=== PATIENT | female | born 1985 | race Caucasian/White ===

== ENCOUNTER 2017-03-17 12:28 | Emergency (ER) | payer OTHER ==
[2017-03-17 12:50] VITALS: BMI 33.6
--- NOTE | 2017-03-17 13:07 | PDOC ---
History of Present Illness - History of Present Illness Initial Comments: 03/17/17 15:06 The patient is a 31 year old female, with a significant past medical history of ovarian cysts, who presents to the emergency department with, left flank pain radiating to left groin for about 3 days. She states she could barely sleep last night secondary to pain. She reports her pain as an intermittent, sharp and throbbing, and rates her pain as 8/10 in severity now. 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 She states she also experienced the pain when walking with her daughter in the park yesterday. She denies any exacerbating or alleviating factors. She denies chest pain, shortness of breath, headache and dizziness. She denies fever, chills, nausea, vomit, diarrhea and constipation. She denies dysuria, frequency, urgency and hematuria. Allergies: NKDA PCP - Dr. Long <Adilene Mandujano - Last Filed: 03/17/17 18:39> - General History Source: Patient Exam Limitations: No Limitations - History of Present Illness Initial Comments: 03/17/17 13:31 Pt not seen because her daughter is currently a patient in the [facility] area and she has not been brought in to the ER <Teri Lock - Last Filed: 03/17/17 18:54> - General Chief Complaint: Pain Stated Complaint: ABD PAIN Time Seen by Provider: 03/17/17 13:07 Past History <Adilene Mandujano - Last Filed: 03/17/17 18:39> - Past Medical History Asthma: Yes - Surgical History Abdominal Surgery: Yes () - Psycho/Social/Smoking Cessation Hx Anxiety: Yes Suicidal Ideation: No Smoking Status: No Smoking History: Never smoked Have you smoked in the past 12 months: No Number of Cigarettes Smoked Daily: 0 Information on smoking cessation initiated: No Hx Alcohol Use: No Drug/Substance Use Hx: No Substance Use Type: None <Teri Lock - Last Filed: 03/17/17 18:54> - Past Medical History Allergies/Adverse Reactions: Allergies Allergy/AdvReac Type Severity Reaction Status Date / Time No Known Allergies Allergy Verified 03/17/17 14:42 Home Medications: Ambulatory Orders Dicyclomine HCl [Bentyl] 10 mg PO BID PRN #10 capsule 03/17/17 Review of Systems - Review of Systems Able to Perform ROS?: Yes Comments:: 03/17/17 15:06 CONSTITUTIONAL: Absent: fever, no chills, no fatigue EYES: Absent: visual changes ENT: Absent: ear pain, no sore throat CARDIOVASCULAR: Absent: chest pain, no palpitations RESPIRATORY: Absent: cough, no SOB GASTROINTESTINAL: (+) intermittent left flank pain radiating to groin. Absent: abdominal pain, no nausea, no vomiting, no constipation, no diarrhea GENITOURINARY: Absent: dysuria, no frequency, no hematuria MUSCULOSKELETAL: Absent: back pain, no arthralgia, no myalgia SKIN: Absent: rash NEURO: Absent: headache <Adilene Mandujano - Last Filed: 03/17/17 18:39> *Physical Exam - Vital Signs Last Vital Signs Temp Pulse Resp BP Pulse Ox 98.7 F 80 18 149/92 100 03/17/17 12:49 03/17/17 12:49 03/17/17 12:49 03/17/17 12:49 03/17/17 12:49 - Physical Exam Comments: 03/17/17 15:07 GENERAL: The patient is in no acute distress. HEAD: Normal with no signs of trauma. EYES: PERRLA, EOMI, sclera anicteric, conjunctiva clear. ENT: Ears normal, nares patent, oropharynx clear without exudates. Moist mucous membranes. NECK: Normal range of motion, supple without lymphadenopathy, JVD, or masses. LUNGS: Breath sounds equal, clear to auscultation bilaterally. No wheezes, and no crackles. HEART:Regular rate and rhythm, normal S1 and S2 without murmur, rub or gallop. ABDOMEN: Soft, nontender, normoactive bowel sounds. No guarding, no rebound. No masses palpable. EXTREMITIES: Normal range of motion, no edema. No clubbing or cyanosis. No erythema, or tenderness. NEUROLOGICAL: Cranial nerves II through XII grossly intact. Normal speech. No focal neurological deficits. MUSCULOSKELETAL: (+) mild tenderness to palpation at the left paraspinal muscle , no CVA tenderness SKIN: Warm, Dry, normal turgor, no rashes or lesions noted. <Adilene Mandujano - Last Filed: 03/17/17 18:39> - Vital Signs Last Vital Signs Temp Pulse Resp BP Pulse Ox 98.7 F 80 18 149/92 100 03/17/17 12:49 03/17/17 12:49 03/17/17 12:49 03/17/17 12:49 03/17/17 12:49 <Teri Lock - Last Filed: 03/17/17 18:54> ED Treatment Course - LABORATORY CBC & Chemistry Diagram: 03/17/17 14:30 03/17/17 14:30 - ADDITIONAL ORDERS Additional order review: 03/17/17 14:30 RBC 4.66 MCV 87.4 MCHC 33.7 RDW 13.5 MPV 6.8 L Neutrophils % 65.2 Lymphocytes % 24.4 D Monocytes % 8.4 Eosinophils % 0.8 Basophils % 1.2 - RADIOLOGY Radiograph Interpretation: 03/17/17 18:39 EXAM#: TYPE/EXAM: RESULT: [id number] US/KIDNEY / RENAL US [id number] US/PELVIC / BLADDER US Renal ultrasound and Pelvic ultrasound Reported By: Alfredo Patel MD 03/17/17 4231 Clinical information: evaluate for renal stone, left ovarian torsion/cyst. There is no hydronephrosis. The kidneys appear unremarkable in position, cortical thickness, echogenicity and size. The left kidney measures 11.3 cm in length, the right knee 10.4 cm. No discrete renal mass lesion or calculus is identified within the limitations of sonography. There is no definite perirenal fluid collection. The ovaries demonstrate no discrete abnormality. There is no Doppler evidence of ovarian torsion, sensitivity sent percent. A small amount of free fluid is noted within the cul-de-sac. The uterus appears unremarkable in size, and echogenicity. No focal uterine pathology is noted. The endometrium is mildly thickened measuring 1.3 cm which may be on a physiologic basis. Correlate menstrual cycle phase. The partially visualized urinary bladder demonstrates no obvious abnormality. Impression: The kidneys appear unremarkable demonstrating no sonographic abnormality. The ovaries appear unremarkable. A small amount of pelvic free fluid is noted. Mildly thickened endometrium. <Adilene Mandujano - Last Filed: 03/17/17 18:39> - LABORATORY CBC & Chemistry Diagram: 03/17/17 14:30 03/17/17 14:30 <Teri Lock - Last Filed: 03/17/17 18:54> Medical Decision Making - Medical Decision Making 03/17/17 13:07 A portion of this note was documented by scribe services under my direction. I have reviewed the details of the note, within reason, and agree with the documentation with the following case summary and management plan written by me. Nursing documentation reviewed and incorporated into medical decision making This patient is a 31-year-old female no significant past medical history who presents emergency department with a complaint of abdominal pain Symptoms are intermittent Located in the left lower abdomen No trauma No vaginal bleeding or discharge No fevers or chills No vomiting Pt states her pain is 8/10 and constant currently (although, her symptoms have been intermittent) 03/17/17 17:14 Laboratory Tests 03/17/17 03/17/17 03/17/17 14:20 14:30 14:30 WBC 8.5 Hgb 13.7 Hct 40.7 Plt Count 311 Sodium Potassium Chloride Carbon Dioxide BUN Creatinine Random Glucose Serum , Qual Negative Urine Blood Negative Urine Nitrite Negative Urine RBC 1 Urine WBC 3 Ur Epithelial Cells Moderate 03/17/17 14:30 WBC Hgb Hct Plt Count Sodium 138 Potassium 4.1 Chloride 102 Carbon Dioxide 30 D BUN 9 Creatinine 0.8 Random Glucose 86 Serum , Qual Urine Blood Urine Nitrite Urine RBC Urine WBC Ur Epithelial Cells 03/17/17 18:48 Ultrasound of the kidneys and pelvis No torsion No renal hydro 03/17/17 18:49 Will discharge to home Follow up with PMD 03/17/17 18:51 Urine not convincing Will hold on abx until culture <Teri Lock - Last Filed: 03/17/17 18:54> *DC/Admit/Observation/Transfer - Attestations Scribe Attestion: 03/17/17 15:08 Documentation prepared by Adilene Mandujano, acting as center medical specialist for Teri Lock MD <Adilene Mandujano - Last Filed: 03/17/17 18:39> - Discharge Dispostion Admit: No <Teri Lock - Last Filed: 03/17/17 18:54> Diagnosis at time of Disposition: Abdominal pain Qualifiers: Abdominal location: unspecified location Qualified Code(s): R10.9 - Unspecified abdominal pain - Discharge Dispostion Disposition: HOME Condition at time of disposition: Stable - Prescriptions Prescriptions: Dicyclomine HCl [Bentyl] 10 mg PO BID PRN #10 capsule PRN Reason: abdominal pain - Referrals Referrals: Gianni Long MD [Primary Care Provider] - - Patient Instructions Printed Discharge Instructions: DI for Abdominal Pain-Adult Additional Instructions: Return to the emergency department immediately with ANY new, persistent or worsening symptoms. Continue any medications as previously prescribed by your physician. You should follow up with your primary doctor as soon as possible regarding today's emergency department visit. . Please make sure your doctor reviews the results of your emergency evaluation. Thank you for coming to the Emergency Department today for your care. It was a pleasure to see you today. Please note that your evaluation is INCOMPLETE until you follow-up with your doctor. - Post Discharge Activity Work/School Note: Back to Work
[2017-03-17 14:54] LABS: BASOPHIL 1.2 % (0-2.0); EOSINOPHIL 0.8 % (0-4.5); MCH 29.5 pg (25.7-33.7); MCHC 33.7 g/dl (32.0-36.0); MEAN CELL VOLUME 87.4 fl (80-96); MEAN PLT VOLUME 6.8 fl (7.5-11.1); NEUTROPHILS 65.2 % (42.8-82.8); PLATELET COUNT 311 K/MM3 (134-434); RDW 13.5 % (11.6-15.6); WHITE BLOOD COUNT 8.5 K/mm3 (4.0-10.0)
[2017-03-17 15:01] LABS: URINE APPEARANCE SLCLOUDY; URINE BILIRUBIN NEGATIVE (NEGATIVE); URINE BLOOD NEGATIVE (NEGATIVE); URINE COLOR YELLOW; URINE GLUCOSE (UA) NEGATIVE (NEGATIVE); URINE KETONE NEGATIVE (NEGATIVE); URINE LEUK ESTERASE TRACE (NEGATIVE); URINE NITRITE NEGATIVE (NEGATIVE); URINE PROTEIN NEGATIVE (NEGATIVE); URINE UROBILINOGEN NEGATIVE mg/dL (0.2-1.0)
[2017-03-17 15:11] LABS: ALBUMIN 3.5 g/dl (3.4-5.0); AMYLASE 58 U/L (25-115); ANION GAP 6 (8-16); BILIRUBIN,TOTAL 0.5 mg/dL (0.2-1.0); CALCIUM 8.5 mg/dL (8.5-10.1); CO2 30 mmol/L (21-32); CREATININE 0.8 mg/dL (0.55-1.02); GLUCOSE,RANDOM 86 mg/dL (74-106); SGOT/AST 10 U/L (15-37); SGPT/ALT 22 U/L (12-78); TOT PROT 6.8 g/dl (6.4-8.2)
[2017-03-17 15:12] LABS: ALK PHOS 84 U/L (45-117)
[2017-03-17 15:52] LABS: URINE MUCUS RARE; URINE RBC 1 /hpf (0-3); URINE WBC 3 /hpf (3-5)
[2017-03-17] MEDS ORDERED: KETOROLAC TROMETHAMINE 30 MG/1 ML VIAL IVPUSH ONE (15:52)
[2017-03-17] MEDS ORDERED: KETOROLAC TROMETHAMINE 30 MG/1 ML VIAL ONE (16:04)
[2017-03-17 18:59] VITALS: BP 129/89; PULSE 65; TEMP 98.1
== END 2017-03-17 19:10 | disposition home or self-care (01) ==
LOC: JER 12:28
PROC: 3E0333Z Introduction of Anti-inflammatory into Peripheral Vein, Percutaneous Approach (ICD-10-PCS; principal; 2017-03-17)
DX: R10.9 Unspecified abdominal pain (principal)
CPT/HCPCS: 36415; 76775-TC; 76856-TC; 80053; 81003; 81015; 82150; 83690; 84703; 85025; 87086; 96374; 99283-25

== ENCOUNTER 2017-05-07 13:52 | Emergency (ER) | payer OTHER ==
[2017-05-07 13:58] VITALS: BP 143/108; PULSE 85; TEMP 97.9; BMI 38.7
--- NOTE | 2017-05-07 16:32 | PDOC ---
History of Present Illness - General Chief Complaint: Edema Stated Complaint: RT LEG PAIN Time Seen by Provider: 05/07/17 14:53 - History of Present Illness Initial Comments: 05/07/17 15:51 CHIEF COMPLAINT: R leg pain HISTORY OF PRESENT ILLNESS: 31 yo F with hx of neuropathy presents to [facility] with pain to R knee and leg. Patient reports she is on gabapentin for nerve pain to R foot but states that today "my foot feels numb and I have shooting pain behind my R knee." Patient denies any shortness of breath, palpitations, or chest pain. PAST MEDICAL HISTORY: Denies past medical history FAMILY HISTORY: Denies SOCIAL HISTORY: Denies tobacco, alcohol, illicit drug use. SURGICAL HISTORY: Denies ALLERGIES: No known drug allergies REVIEW OF SYSTEMS General/Constitutional: Denies fever or chills. Denies weakness, weight change. HEENT: Denies change in vision. Denies ear pain or discharge. Denies sore throat. Cardiovascular: Denies chest pain or shortness of breath. Respiratory: Denies cough, wheezing, or hemoptysis. Gastrointestinal: Denies nausea, vomiting, diarrhea or constipation. Denies rectal bleeding. Genitourinary: Denies dysuria, frequency, or change in urination. Musculoskeletal: Pain to R leg. PHYSICAL EXAM General Appearance: Well-appearing, appropriately dressed. No apparent distress. HEENT: EOMI, PERRLA. No conjunctival pallor. No photophobia, scleral icterus. Respiratory/Chest: Lungs CTAB. Cardiovascular: RRR. S1, S2. Vascular Pulses: Dorsalis-Pedis (R): 2+, Dorsalis-Pedis (L): 2+ Gastrointestinal/Abdominal: Normal bowel sounds. Abdomen soft, non-distended. No tenderness or rebound tenderness. No organomegaly, pulsatile mass, guarding , hernia, hepatomegaly, splenomegaly. Lymphatic: No adenopathy, tenderness. Musculoskeletal/Extremities: Minimal swelling to anterior R knee, no erythema, pitting edema or warmth. No deformity. FROM of all extremities, normal capillary refill. No tenderness to extremities, pedal edema, erythema or deformity. Integumentary: Appropriate color, dry, warm. 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 Fully oriented, alert. Appropriate mood/affect. Motor strength 5/5. No appreciable EOM palsy, facial droop or sensory deficit. 05/07/17 16:34 Past History - Past Medical History Allergies/Adverse Reactions: Allergies Allergy/AdvReac Type Severity Reaction Status Date / Time No Known Allergies Allergy Verified 05/07/17 13:58 Home Medications: Ambulatory Orders Gabapentin [Gralise] 1 each PO ASDIR 05/07/17 Ibuprofen 600 mg PO TID PRN #21 tablet 05/07/17 Asthma: Yes - Surgical History Abdominal Surgery: Yes () - Suicide/Smoking/Psychosocial Hx Smoking Status: No Smoking History: Never smoked Have you smoked in the past 12 months: No Number of Cigarettes Smoked Daily: 0 Hx Alcohol Use: No Drug/Substance Use Hx: No Substance Use Type: None *Physical Exam - Vital Signs Last Vital Signs Temp Pulse Resp BP Pulse Ox 97.9 F 85 19 143/108 99 05/07/17 13:55 05/07/17 13:55 05/07/17 13:55 05/07/17 13:55 05/07/17 13:55 ED Treatment Course - RADIOLOGY Radiology Studies Ordered: Category Date Time Status DUPLEX VASCUL US-1 LEG [US] Stat Ultrasound 05/07/17 15:45 Ordered Medical Decision Making - Medical Decision Making 05/07/17 16:39 31 yo F with hx of neuropathy presents to [facility] with "shooting" pain to R knee and leg. -duplex us r/o dvt US negative for DVT. Advised patient to f/u with neurologist for fruther evaluation and of signs and symptoms for return to ER. *DC/Admit/Observation/Transfer Diagnosis at time of Disposition: Knee pain, right Qualifiers: Chronicity: acute Qualified Code(s): M25.561 - Pain in right knee; M25.561 - Pain in right knee - Discharge Dispostion Disposition: HOME Condition at time of disposition: Stable Admit: No - Prescriptions Prescriptions: Ibuprofen 600 mg PO TID PRN #21 tablet PRN Reason: Pain - Referrals Referrals: James Desir MD [Primary Care Provider] - - Patient Instructions Printed Discharge Instructions: Neuropathic Pain, DI for Patellofemoral Pain Syndrome-Adult, DI for Knee Pain Additional Instructions: Please take ibuprofen as prescribed to reduce swelling and inflammation in your knee. Please follow up with your neurologist for continued evaluation of your nerve pain. If your pain continues, you may also want to follow up with an orthopedist for further evaluation and possible MRI and/or physical therapy. If you develop any fever, chills, vomiting, diarrhea; or you develop increased pain, swelling, redness, or warmth to the knee, please return to the ER immediately.
== END 2017-05-07 16:50 | disposition home or self-care (01) ==
LOC: JERFT 13:52
DX: M25.561 Pain in right knee (principal)
CPT/HCPCS: 93971-TC; 99281-25

== ENCOUNTER 2017-08-13 15:43 | Emergency (ER) | payer OTHER ==
[2017-08-13 15:54] VITALS: BP 146/89; PULSE 80; TEMP 97.8; BMI 37.5
--- NOTE | 2017-08-13 15:55 | PDOC ---
Rapid Medical Evaluation Time Seen by Provider: 08/13/17 15:50 Medical Evaluation: Allergies Allergy/AdvReac Type Severity Reaction Status Date / Time No Known Allergies Allergy Verified 05/07/17 13:58 08/13/17 15:50 The patient presents with a chief complaint of: three weeks of "weird feeling in her face" admits to feeling pins and needles to her head, dizziness, hot flashes. Pain worse with valsalva manuvers. Denies cold like symptoms. Has not seen her PCP. Denies recent travel. on Gabapentin for sciatica. I have performed a brief in-person evaluation of this patient; Pertinent physical exam findings: TTP of scalp. Numbness to face b/l. afebrile, EOMI, PERRLA I have ordered the following: CBC, CMP, UA, UC, Head CT The patient will proceed to the ED for further evaluation.
--- NOTE | 2017-08-13 17:10 | PDOC ---
History of Present Illness - General Chief Complaint: Headache Stated Complaint: DIZZINESS Time Seen by Provider: 08/13/17 15:50 History Source: Patient Exam Limitations: No Limitations - History of Present Illness Initial Comments: 31 y/o afebrile female with PMH vertigo, lumbar nerve impingement (on gabapentin ) c/o 3 weeks of tingling to head and face with movement of neck and with bowel movements. The patient states she has also had some nausea and dizziness. She denies trauma to head, changes to vision/hearing, ear pain, eye pain, f/c, neck pain, v /d, CP, SOB, cough, hemoptysis, numbness/tingling in extremities. The patient hasn't taken any OTC medications for her symptoms, nor has she seen her PCP. = Past History - Past Medical History Allergies/Adverse Reactions: Allergies Allergy/AdvReac Type Severity Reaction Status Date / Time No Known Allergies Allergy Verified 08/13/17 15:54 Home Medications: Ambulatory Orders Gabapentin 100 mg PO ASDIR 08/13/17 Asthma: Yes COPD: No - Surgical History Abdominal Surgery: Yes () - Suicide/Smoking/Psychosocial Hx Smoking Status: No Smoking History: Never smoked Have you smoked in the past 12 months: No Number of Cigarettes Smoked Daily: 0 Information on smoking cessation initiated: No Hx Alcohol Use: No Drug/Substance Use Hx: No Substance Use Type: None Review of Systems - Review of Systems Able to Perform ROS?: Yes Is the patient limited Citizen Of [place] proficient: No Constitutional: No: Symptoms Reported HEENTM: No: Symptoms Reported Respiratory: No: Symptoms reported Cardiac (ROS): No: Symptoms Reported ABD/GI: Yes: Vomiting. No: Abdominal Distended, Abd. Pain w/ defecation, Constipated, Diarrhea, Nausea : No: Symptoms Reported Musculoskeletal: No: Symptoms Reported Neurological: Yes: Tingling, Dizziness (Tingling to face and head) Psychiatric: Yes: Anxiety *Physical Exam - Vital Signs Last Vital Signs Temp Pulse Resp BP Pulse Ox 97.8 F 80 18 146/89 100 08/13/17 15:51 08/13/17 15:51 08/13/17 15:51 08/13/17 15:51 08/13/17 15:51 - Physical Exam Comments: The patient is a morbidly obese, well appearing, ambulatory female. General Appearance: Yes: Nourished, Appropriately Dressed. No: Apparent Distress HEENT: positive: EOMI, NAZ, Normal ENT Inspection, TMs Normal. negative: Scleral Icterus (R), Scleral Icterus (L), Pharyngeal Erythema, Tonsillar Exudate , Tonsillar Erythema, Nasal Congestion, Rhinorrhea, Sinus Tenderness, TM Bulging , TM Dull, TM Erythema Neck: negative: Tender Respiratory/Chest: positive: Lungs Clear Cardiovascular: positive: Regular Rhythm, Regular Rate Gastrointestinal/Abdominal: positive: Soft. 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 Sensation in tact in face and head). negative: Facial Droop, Numbness ED Treatment Course - LABORATORY CBC & Chemistry Diagram: 08/13/17 16:10 08/13/17 16:10 Medical Decision Making - Medical Decision Making A/P: 31 y/o afebrile female c/o head and face tingling with head movements and bowel movements x 3 weeks. Plan is as follows: 1. Labs 2. hcg 3. Head CT CT head IMPRESSION: No intracranial hemorrhage, mass effect, midline shift or hydrocephalus. Labs unremarkable. Explained the results to the patient. Suggested she f/u with Neuro if symptoms continue. Instructed her to return to the ER with any worsening or concerning symptoms. The patient verbalizes understanding of all instructions, has no further questions and is awaiting discharge. *DC/Admit/Observation/Transfer Diagnosis at time of Disposition: Tingling of face - Discharge Dispostion Disposition: HOME Condition at time of disposition: Good - Referrals Referrals: Ruthie Milner MD [Primary Care Provider] - Torres Singh MD [Staff Physician] - - Patient Instructions Printed Discharge Instructions: DI for Numbness/tingling Additional Instructions: Discharge Instructions: -All of your labs and scans were normal -Please follow up with your neurologist within 1 week -Return to the ER with any worsening or concerning symptoms - Post Discharge Activity
[2017-08-13 17:34] LABS: BASO % 0.4 % (0-2.0); EOS % 1.1 % (0-4.5); HEMATOCRIT 39.9 % (32.4-45.2); HEMOGLOBIN 13.5 GM/dL (10.7-15.3); LYMPH % 23.8 % (8-40); MCH 29.2 pg (25.7-33.7); MCHC 33.7 g/dl (32.0-36.0); MEAN CELL VOLUME 86.5 fl (80-96); MEAN PLT VOLUME 7.4 fl (7.5-11.1); MONO % 7.9 % (3.8-10.2); NEUT % 66.8 % (42.8-82.8); PLATELET COUNT 357 K/MM3 (134-434); RBC 4.61 M/mm3 (3.60-5.2); RDW 13.9 % (11.6-15.6); WHITE BLOOD COUNT 7.9 K/mm3 (4.0-10.0)
[2017-08-13 18:45] LABS: ALBUMIN 3.5 g/dl (3.4-5.0); ANION GAP 5 (8-16); BLOOD UREA NITROGEN 15 mg/dL (7-18); CALCIUM 8.1 mg/dL (8.5-10.1); CHLORIDE 106 mmol/L (98-107); CO2 28 mmol/L (21-32); GLUCOSE,RANDOM 95 mg/dL (74-106); SODIUM 139 mmol/L (136-145)
[2017-08-13 18:48] LABS: ALK PHOS 84 U/L (45-117); BILIRUBIN,TOTAL 0.3 mg/dL (0.2-1.0); CREATININE 0.8 mg/dL (0.55-1.02); SGOT/AST 9 U/L (15-37); SGPT/ALT 22 U/L (12-78); TOT PROT 6.9 g/dl (6.4-8.2)
[2017-08-13] MEDS ORDERED: IBUPROFEN 600 MG TABLET (FP) PO ONE ×2 (19:12→19:23)
== END 2017-08-13 19:42 | disposition home or self-care (01) ==
LOC: JERFT 15:43
DX: R20.2 Paresthesia of skin (principal)
CPT/HCPCS: 36415; 70450-TC; 80053; 84703; 85025; 99281-25

== ENCOUNTER 2018-04-27 09:52 | Emergency (ER) | payer OTHER ==
[2018-04-27 10:03] VITALS: BP 150/97; PULSE 72; TEMP 99.3; BMI 36.0
[2018-04-27] MEDS ORDERED: IBUPROFEN 600 MG TABLET (FP) PO ONE (10:22)
--- NOTE | 2018-04-27 10:24 | PDOC ---
History of Present Illness - General Chief Complaint: Pain Stated Complaint: FELL/LT SIDE PAIN SWOLLEN Time Seen by Provider: 04/27/18 10:06 History Source: Patient Exam Limitations: No Limitations - History of Present Illness Initial Comments: 04/27/18 10:36 Patient was walking daughter to school, slipped and fell landing on her left side striking her shoulder, elbow, left hip knee and ankle. Denies head injury, no pain to neck or back. States is concerned about her left knee as is difficult to walk and is very painful. Occurred: reports: just prior to arrival, this morning Severity: reports: moderate Pain Location: reports: lower extremity (left knee , ankle and hip). denies: neck Method of Injury: Yes: fall Modifying Factors: improves with: cold therapy Associated Symptoms (Fall): denies symptoms Past History - Travel Traveled outside of the country in the last 30 days: No Close contact w/someone who was outside of country & ill: No - Past Medical History Allergies/Adverse Reactions: Allergies Allergy/AdvReac Type Severity Reaction Status Date / Time No Known Allergies Allergy Verified 04/27/18 09:59 Home Medications: Ambulatory Orders Lisinopril 10 mg PO ASDIR 03/03/18 Asthma: Yes COPD: No HTN: Yes - Surgical History Abdominal Surgery: Yes () - Suicide/Smoking/Psychosocial Hx Smoking Status: No Smoking History: Never smoked Have you smoked in the past 12 months: No Number of Cigarettes Smoked Daily: 0 Hx Alcohol Use: No Drug/Substance Use Hx: No Substance Use Type: None Review of Systems - Review of Systems Able to Perform ROS?: Yes Is the patient limited [place] proficient: Yes Constitutional: Yes: Symptoms Reported, See HPI. No: Malaise HEENTM: Yes: See HPI. No: Symptoms Reported Respiratory: Yes: See HPI. No: Symptoms reported, Cough Musculoskeletal: Yes: Symptoms Reported, See HPI, Joint Pain, Joint Swelling ( left knee, , left ankle, and left hip left ankle, and left hip with bruising initiated along lateral aspect of upper tibia) Integumentary: Yes: Symptoms Reported, See HPI, Bruising Neurological: Yes: See HPI. No: Symptoms reported, Headache All Other Systems: Reviewed and Negative *Physical Exam - Vital Signs Last Vital Signs Temp Pulse Resp BP Pulse Ox 99.3 F 72 16 150/97 100 04/27/18 10:00 04/27/18 10:00 04/27/18 10:00 04/27/18 10:00 04/27/18 10:00 - Physical Exam General Appearance: Yes: Nourished, Appropriately Dressed, Apparent Distress, Mild Distress HEENT: positive: EOMI, NAZ, Normal ENT Inspection, TMs Normal, Pharynx Normal Neck: positive: Supple. negative: Tender Respiratory/Chest: positive: Lungs Clear Musculoskeletal: negative: Normal Inspection Extremity: positive: Normal Capillary Refill, Swelling. negative: Normal Inspection, Normal Range of Motion (limited range of motion to left knee secondary to swelling and tenderness to lateral aspect of upper left extremity at knee joint. 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 We'll treat conservatively *DC/Admit/Observation/Transfer Diagnosis at time of Disposition: Multiple contusions - Discharge Dispostion Disposition: HOME Condition at time of disposition: Stable Decision to Admit order: No - Referrals Referrals: Jessica Oconnor MD [Primary Care Provider] - - Patient Instructions Printed Discharge Instructions: DI for Contusion Additional Instructions: Rest, ice to area on and off for 15 minutes 4-6 times a day Avoid heavy lifting or exercise until pain and swelling is resolved or until further directed Keep area highly elevated to reduce swelling Use splints/Cesar wrap as directed Followup with orthopedist in one to 2 days if not improving, if significantly improved may wait one week for followup with orthopedist May use ibuprofen 2-200 mg tablets every 6 hours as needed for pain - Post Discharge Activity Forms/Work/School Notes: Back to Work
== END 2018-04-27 11:41 | disposition home or self-care (01) ==
LOC: JERFT 09:52
DX: S40.012A Contusion of left shoulder, initial encounter (principal); S50.02XA Contusion of left elbow, initial encounter; S80.02XA Contusion of left knee, initial encounter; S70.02XA Contusion of left hip, initial encounter; S90.02XA Contusion of left ankle, initial encounter; W18.39XA Other fall on same level, initial encounter; Y93.01 Activity, walking, marching and hiking; Y92.480 Sidewalk as the place of occurrence of the external cause; Y99.8 Other external cause status; I10 Essential (primary) hypertension
CPT/HCPCS: 73562-TC-LT-FY; 99281-25